=== PATIENT | female | born 1985 | race Caucasian/White ===

== ENCOUNTER 2017-09-10 00:47 | Emergency (ER) | payer OTHER, SELFPAY | END 2017-09-10 02:28 | disposition home or self-care (01) | LOC: ERS 00:47 | DX: J02.9 Acute pharyngitis, unspecified (principal); J45.909 Unspecified asthma, uncomplicated; F32.9 Major depressive disorder, single episode, unspecified; F17.210 Nicotine dependence, cigarettes, uncomplicated | CPT/HCPCS: 87081; 87430; 99283 ==

== ENCOUNTER 2017-10-08 23:13 | Emergency (ER) | payer SELFPAY | END 2017-10-09 01:32 | disposition home or self-care (01) | LOC: ERS 23:13 | DX: J11.1 Influenza due to unidentified influenza virus with other respiratory manifestations (principal); J45.909 Unspecified asthma, uncomplicated; F32.9 Major depressive disorder, single episode, unspecified; F17.210 Nicotine dependence, cigarettes, uncomplicated | CPT/HCPCS: 87804; 99283 ==

== ENCOUNTER 2018-06-29 02:46 | Emergency (ER) | payer SELFPAY ==
[2018-06-29] MEDS ORDERED: Dexamethasone 10 MG/ML VIAL ONE (03:26)
--- NOTE | 2018-06-29 08:58 | RAD ---
2 VIEW CHEST SERIES: Date: 06/29/18 COMPARISON: 04/28/17. INDICATION: Cough. FINDINGS: Diffuse interstitial prominence is present bilaterally. No significant effusion or consolidation. The heart size is normal. No pneumothorax. IMPRESSION: Diffuse interstitial opacities. This could relate to an atypical pneumonia versus edema or interstiti al lung disease. Correlate clinically. Imaging follow-up may prove useful to confirm resolution. CODE T. POS: [facility]
== END 2018-06-29 04:58 | disposition home or self-care (01) ==
LOC: ERS 02:46
DX: J02.9 Acute pharyngitis, unspecified (principal); Z71.6 Tobacco abuse counseling; J45.909 Unspecified asthma, uncomplicated; F32.9 Major depressive disorder, single episode, unspecified; F17.210 Nicotine dependence, cigarettes, uncomplicated
CPT/HCPCS: 71046; 87081; 87430; 87804; 96372; 99406; J1100

== ENCOUNTER 2018-09-23 14:15 | Emergency (ER) | payer BC, SELFPAY ==
[2018-09-23] MEDS ORDERED: Sulfameth/Trimethoprim DS 800-160mg TAB ONE (14:39)
== END 2018-09-23 14:50 | disposition home or self-care (01) ==
LOC: SCSER 14:15
DX: H66.92 Otitis media, unspecified, left ear (principal); J02.9 Acute pharyngitis, unspecified; J45.909 Unspecified asthma, uncomplicated; F32.9 Major depressive disorder, single episode, unspecified; F17.210 Nicotine dependence, cigarettes, uncomplicated
CPT/HCPCS: 99283

== ENCOUNTER 2019-02-11 16:26 | Emergency (ER) | payer BC | END 2019-02-11 17:14 | disposition home or self-care (01) | LOC: ERS 16:26 | DX: H66.92 Otitis media, unspecified, left ear (principal); J45.909 Unspecified asthma, uncomplicated; F32.9 Major depressive disorder, single episode, unspecified; F17.210 Nicotine dependence, cigarettes, uncomplicated | CPT/HCPCS: 99282 ==

== ENCOUNTER 2019-02-21 09:32 | Emergency (ER) | payer BC ==
[2019-02-21] MEDS ORDERED: Ondansetron PF 4 MG/2 ML Vial ONE (10:50)
[2019-02-21] MEDS ORDERED: ISOVUE-370 76%-LOCM 1 ML ONE (11:05)
[2019-02-21 11:24] LABS: Bilirubin Negative (Negative); Blood, Urine Negative (Negative); Clarity CLEAR (Clear); Glucose, Urine (Dipstick) Negative (Negative); Leukocyte Negative (Negative); Nitrite Negative (Negative); Protein, Urine (Dipstick) Negative (Neg-Trace); Specific Gravity, Urine 1.004 (1.002-1.036); pH, Urine 7.5 (5.0-9.0)
[2019-02-21 11:25] LABS: ALT (SGPT) 11 U/L (8-55); AST (SGOT) 13 U/L (5-34); Albumin 4.3 g/dL (3.5-5.0); Alkaline Phosphatase 100 U/L (40-150); Anion Gap 12 mmol/L (10-20); BUN (Urea Nitrogen) 5 mg/dL (7.0-18.7); Bilirubin, Total 0.6 mg/dL (0.2-1.2); Calc. Creatinine Clearance 0 mL/min (70-130); Calcium 9.4 mg/dL (7.8-10.44); Carbon Dioxide 26 mmol/L (22-29); Chloride 103 mmol/L (98-107); Estimated GFR-MDRD Greater than 90; Globulin 2.5 g/dL (2.4-3.5); Glucose 96 mg/dL (70-105); Lipase 69 U/L (8-78); Potassium 3.6 mmol/L (3.5-5.1); Protein, Total 6.8 g/dL (6.0-8.3); Sodium 137 mmol/L (136-145)
[2019-02-21 11:27] LABS: Pregnancy Test - Urine (BHCG) Negative (Negative); Pregu Control Background? CLEAR/WHITE (CLR/WHITE); Pregu Control Bar Appear? YES (CONTROL BAR); Specific Gravity 1.004 (1.002-1.036)
[2019-02-21] MEDS ORDERED: Sucralfate 1 GM/10 ML UDCUP ONE (11:50)
[2019-02-21 11:55] LABS: #Lymphocytes 0.6 thou/uL (1.20-3.40); #Monocytes 0.3 thou/uL (0.11-0.59); %Basophils 0.1 % (0.0-1.0); %Eosinophils 0.5 % (0.0-10.0); %Lymphocytes 9.4 % (21.0-51.0); %Monocytes 5.2 % (0.0-10.0); %Neutrophils 84.8 % (42.0-75.0); Hemoglobin 13.1 g/dL (12.0-16.0); MDiff Complete? YES; Mean Corpuscular HGB CONC 33.1 g/dL (32.0-36.0); Mean Corpuscular Hemoglobin 28.8 pg (27.0-31.0); Mean Corpuscular Volume 86.9 fL (78.0-98.0); Mean Platelet Volume 10.5 fL (7.4-10.4); Platelet Count 110 thou/uL (130-400); Platelet Morphology Comment Appears Decreased; Polychromasia SLIGHT = 2-3 cells (100X) (0-2/hpf); RBC Distribution Width 13.2 % (11.5-14.5); Red Blood Cell (RBC) Count 4.54 mill/uL (4.20-5.40); White Blood Cell (WBC) Count 5.8 thou/uL (4.8-10.8)
--- NOTE | 2019-02-21 12:52 | CT ---
CT Abdomen Pelvis W Con: 02/21/2019 12:29 PM CLINICAL INFORMATION: Vomiting and abdominal pain COMPARISON: None. TECHNIQUE: Multiple contiguous axial images were obtained and a CT of the abdomen and pelvis with IV contrast. C oronal reformats were performed. FINDINGS: Lower Chest: within normal limits. Abdomen: Liver: within normal limits. Bile Ducts: Normal caliber. Gallbladder: No calcified gallstones. Normal caliber wall. Pancreas: within normal limits. Spleen: within normal limits. Adrenals: within normal limits. Kidneys: within normal limits. Pelvis: Reproductive Organs: Tubal ligation clips both seen to the left of the uterus. A dominant follicle is seen in the left ovary measuring 2.9 cm in size. Ureters: within normal limits. Bladder: within normal limits. Peritoneum: No ascites or free air, no fluid collection. Bowel: Normal caliber. Normal appendix. Mesentery and Retroperitoneum: No enlarged mesenteric or retroperitoneal lymph nodes. Vessels: Normal. Abdominal Wall: within normal limits. Bones: Within normal limits IMPRESSION: No evidence of acute intraabdominal\pelvic abnormality.
== END 2019-02-21 14:12 | disposition home or self-care (01) ==
LOC: ERS 09:32
DX: R11.2 Nausea with vomiting, unspecified (principal); R10.9 Unspecified abdominal pain; J45.909 Unspecified asthma, uncomplicated; F32.9 Major depressive disorder, single episode, unspecified; F17.210 Nicotine dependence, cigarettes, uncomplicated
CPT/HCPCS: 74177; 80053; 81003; 81025; 83690; 85025; 87086; 96361; 96374; J2405; Q9966

== ENCOUNTER 2019-04-19 19:44 | Emergency (ER) | payer BC ==
[2019-04-19 20:14] LABS: #Lymphocytes 1.7 thou/uL (1.20-3.40); #Monocytes 0.3 thou/uL (0.11-0.59); #Neutrophils 2.7 thou/uL (1.40-6.50); %Basophils 0.8 % (0.0-1.0); %Eosinophils 0.7 % (0.0-10.0); %Lymphocytes 35.4 % (21.0-51.0); %Monocytes 6.9 % (0.0-10.0); %Neutrophils 56.1 % (42.0-75.0); Hemoglobin 11.6 g/dL (12.0-16.0); Mean Corpuscular HGB CONC 34.5 g/dL (32.0-36.0); Mean Corpuscular Hemoglobin 29.4 pg (27.0-31.0); Mean Corpuscular Volume 85.1 fL (78.0-98.0); Mean Platelet Volume 8.6 fL (7.4-10.4); Platelet Count 184 thou/uL (130-400); RBC Distribution Width 13.7 % (11.5-14.5); Red Blood Cell (RBC) Count 3.95 mill/uL (4.20-5.40); White Blood Cell (WBC) Count 4.8 thou/uL (4.8-10.8)
--- NOTE | 2019-04-19 20:22 | RAD ---
2 views of the chest: 04/19/2019 COMPARISON: None HISTORY: Chest pain FINDINGS: There is a possible nodule within the left upper lobe measuring 1.4 cm in transverse dimens ion, just inferior to the left clavicle. No pneumothorax or pleural fluid. No focal consolidation or alveolar edema. IMPRESSION: Question left upper lobe pulmonary nodule. Nonemergent follow-up CT is recommended. Code lung nodule
[2019-04-19 20:28] LABS: Anion Gap 12 mmol/L (10-20); BUN (Urea Nitrogen) 7 mg/dL (7.0-18.7); Calc. Creatinine Clearance 0 mL/min (70-130); Calcium 9.3 mg/dL (7.8-10.44); Carbon Dioxide 30 mmol/L (22-29); Chloride 103 mmol/L (98-107); Estimated GFR-MDRD Greater than 90; Glucose 99 mg/dL (70-105); Potassium 3.1 mmol/L (3.5-5.1); Sodium 142 mmol/L (136-145)
[2019-04-19] MEDS ORDERED: Potassium Chloride 20 MEQ TAB ONE (20:37)
[2019-04-19] MEDS ORDERED: Azithromycin 250 MG TAB ONE (21:14)
[2019-04-19] MEDS ORDERED: Amoxicillin/Potassium Clav 875 MG TAB ONE (21:14)
== END 2019-04-19 21:25 | disposition home or self-care (01) ==
LOC: SCSER 19:44
DX: J18.9 Pneumonia, unspecified organism (principal); J45.909 Unspecified asthma, uncomplicated; F32.9 Major depressive disorder, single episode, unspecified; Z87.891 Personal history of nicotine dependence; Z79.51 Long term (current) use of inhaled steroids
CPT/HCPCS: 36415; 71046; 80048; 84484; 85025; 93005

== ENCOUNTER 2019-06-08 13:09 | Outpatient (CLI) | payer BC ==
--- NOTE | 2019-06-08 13:52 | CT ---
CT CHEST WITH IV CONTRAST 06/08/19 PROVIDED CLINICAL HISTORY: Possible lung nodule on prior chest radiograph. FINDINGS: Correlation is made with the chest radiograph of 04/19/19. The heart, pericardium and great vessels demonstrate an unremarkable CT appearance. There is no evidence for thoracic lymph node enlargement. The airway appears patent and of normal caliber. The lungs are free of significant opacity. There is no evidence for pulmonary nodule. Minimal parasep magaly emphysematous changes are seen at the lung apices. The visualized portions of the upper abdomen appear unremarkable. The osseous structures demonstrate no concerning lytic or blastic lesions. IMPRESSION: Unremarkable CT chest. No evidence for pulmonary nodules to correspond with the chest radiographic fi nding, which was presumably artifactual. POS: [facility]
== END 2019-06-08 13:10 | disposition home or self-care (01) ==
LOC: BICCT 13:09
PROVIDERS: ATTEND Internal Medicine
DX: R91.1 Solitary pulmonary nodule (principal)
CPT/HCPCS: 71260

== ENCOUNTER 2020-05-25 18:53 | Emergency (ER) | payer BC, OTHER ==
[2020-05-25 20:15] LABS: #Lymphocytes 0.7 thou/uL (1.20-3.40); #Monocytes 0.4 thou/uL (0.11-0.59); #Neutrophils 3.7 thou/uL (1.40-6.50); %Basophils 0.6 % (0.0-1.0); %Eosinophils 0.5 % (0.0-10.0); %Lymphocytes 14.8 % (21.0-51.0); Hemoglobin 12.6 g/dL (12.0-16.0); Mean Corpuscular HGB CONC 33.9 g/dL (32.0-36.0); Mean Corpuscular Hemoglobin 29.7 pg (27.0-31.0); Mean Corpuscular Volume 87.7 fL (78.0-98.0); Mean Platelet Volume 9.8 fL (7.4-10.4); Platelet Count 171 thou/uL (130-400); RBC Distribution Width 13.2 % (11.5-14.5); Red Blood Cell (RBC) Count 4.22 mill/uL (4.20-5.40); White Blood Cell (WBC) Count 4.9 thou/uL (4.8-10.8)
[2020-05-25 20:23] LABS: BHCG - Serum Negative (NEGATIVE); Pregs Control Background? CLEAR/WHITE (CLR/WHITE); Pregs Control Bar Appear? YES (CONTROL BAR)
[2020-05-25 20:35] LABS: ALT (SGPT) 11 U/L (8-55); AST (SGOT) 18 U/L (5-34); Albumin 3.9 g/dL (3.5-5.0); Alkaline Phosphatase 92 U/L (40-110); Anion Gap 11 mmol/L (10-20); BUN (Urea Nitrogen) 6 mg/dL (7.0-18.7); Bilirubin, Total 0.5 mg/dL (0.2-1.2); Calc. Creatinine Clearance 0 mL/min (70-130); Calcium 8.7 mg/dL (7.8-10.44); Carbon Dioxide 28 mmol/L (22-29); Chloride 105 mmol/L (98-107); Estimated GFR-MDRD 87; Globulin 2.5 g/dL (2.4-3.5); Glucose 88 mg/dL (70-105); Lipase 32 U/L (8-78); Potassium 3.8 mmol/L (3.5-5.1); Protein, Total 6.4 g/dL (6.0-8.3); Sodium 140 mmol/L (136-145)
[2020-05-25 21:10] LABS: Bilirubin Negative (Negative); Blood, Urine Negative (Negative); Clarity Clear (Clear); Glucose, Urine (Dipstick) Normal (Negative); Ketone, Urine Negative (Negative); Leukocyte Negative Leu/uL (Negative); Nitrite Negative (Negative); Protein, Urine (Dipstick) Negative (Neg-Trace); Specific Gravity, Urine 1.011 (1.002-1.036); Urobilinogen Normal mg/dL (Less than 2)
[2020-05-25] MEDS ORDERED: Ketorolac Tromethamine 30 MG/ML VIAL ONE (21:18)
[2020-05-25] MEDS ORDERED: Acetaminophen 500 MG TAB ONE (21:18)
[2020-05-25] MEDS ORDERED: Lidocaine Viscous Sol 2% 15 ml UD Cup ONE (21:18)
[2020-05-25] MEDS ORDERED: Dexamethasone 4 mg/ml Vial ONE (21:29)
[2020-05-27 11:42] LABS: SARS-CoV-2 MS2 Positive; SARS-CoV-2 N Gene Negative; SARS-CoV-2 S Gene Negative; SARS-CoV-2 by NAA Not Detected (NotDetected); SARS-CoV-2 orf1ab Negative
== END 2020-05-25 21:59 | disposition home or self-care (01) ==
LOC: ERS 18:53
DX: B34.9 Viral infection, unspecified (principal); Z20.828 Contact with and (suspected) exposure to other viral communicable diseases; J45.909 Unspecified asthma, uncomplicated; F32.9 Major depressive disorder, single episode, unspecified; Z87.891 Personal history of nicotine dependence; Z79.899 Other long term (current) drug therapy
CPT/HCPCS: 36415; 80053; 81003; 83690; 84703; 85025; 87635; 96372; 99284; J1100; J1885; U0003

== ENCOUNTER 2021-02-20 15:30 | Outpatient (CLI) | payer OTHER | END 2021-02-20 15:31 | disposition home or self-care (01) | LOC: BICULT 15:30 | PROVIDERS: ATTEND Family Medicine | DX: R10.2 Pelvic and perineal pain (principal); N83.202 Unspecified ovarian cyst, left side | CPT/HCPCS: 76856 ==

== ENCOUNTER 2022-03-08 01:11 | Emergency (ER) | payer BC, SELFPAY | END 2022-03-08 03:36 | disposition home or self-care (01) | LOC: ERS 01:11 | DX: S93.402A Sprain of unspecified ligament of left ankle, initial encounter (principal); J45.909 Unspecified asthma, uncomplicated; W18.30XA Fall on same level, unspecified, initial encounter; Y93.01 Activity, walking, marching and hiking; Z87.891 Personal history of nicotine dependence ==